=== PATIENT | female | born 1930 | race Caucasian/White ===

== ENCOUNTER 2016-07-01 07:35 | Emergency (ER) | payer MEDICAID ==
[~2016-07-01] VITALS: Ht 152.4 cm; Wt 49.0 kg
[~2016-07-01 07:35] MED LIST: NAPR-260 PO
[2016-07-01 07:36] VITALS: Ht 152.4 cm; Wt 49.0 kg
--- NOTE | 2016-07-01 08:15 | ERD ---
ER Documentation Chief Complaint Date/Time DATE: 07/01/16 TIME: 07:58 Chief Complaint 09/24 R. leg pain x 5 days after fall HPI This is a very pleasant 85-year-old [place]an speaking female presents to the emergency department, brought in by her daughter, complaining of right leg pain for the past 6 days. The patient had a mechanical trip and fall over an object on a tile surface inside her home. The patient did not hit her head or lose consciousness. The patient had landed on her right hip and right elbow. She indicates she normally ambulates with a cane. She did not initially want to come to the hospital for evaluation however her daughter became concerned when she noticed bruising over her right hip. The patient indicates she is experiencing mild pain of her right hip and elbow that is exacerbated with ambulation and movement of the right arm. She denies any numbness or tingling of her upper or lower extremities. She is right-handed dominant. The patient has no past medical history and takes 81 mg of aspirin on a daily basis. She did not take any analgesic medication prior to arrival ROS All systems reviewed and are negative except as per history of present illness. Medications Home Meds Active Scripts Naproxen* (Naprosyn*) 500 Mg Tablet, 500 MG PO BID Y for PAIN AND/OR INFLAMMATION, #30 TAB Prov:LEDATRACEY CERVANTES 08/23/15 Allergies Allergies: Coded Allergies: No Known Allergy (Unverified , 08/22/15) PMhx/Soc History of Surgery: Yes (hysterectomy ) Anesthesia Reaction: No Hx Neurological Disorder: No Hx Respiratory Disorders: No Hx Cardiac Disorders: Yes (htn) Hx Psychiatric Problems: No Hx Miscellaneous Medical Probl: Yes (anemia) Hx Alcohol Use: No Hx Substance Use: No Hx Tobacco Use: No Physical Exam Vitals Vital Signs Date Time Temp Pulse Resp B/P Pulse Ox O2 Delivery O2 Flow Rate FiO2 07/01/16 07:36 98.4 70 18 167/74 99 Physical Exam Constitutional:Well-developed. Well-nourished. HEENT:Normocephalic. Atraumatic.Pupils were equal round reactive to light. Moist mucous membranes.No tonsillar exudates. Neck: No nuchal rigidity. No lymphadenopathy. No posterior cervical spine tenderness or step-offs. Respiratory: Not using accessory muscles of respiration.Lungs were clear to auscultation bilaterally. No rhonchi. No rales. No wheezing. Cardiovascular: Regular rate regular rhythm.No murmurs. No rubs were appreciated.S1, S2 normal. Distal pulses are palpable 2+ bilaterally. No crepitus no ecchymosis no flail chest GI: Abdomen was soft. Nontender. Non Distended. No pulsatile abdominal masses or bruits. No rebound. No guarding. Bowel sounds were present and normal. Muscle skeletal: Full range of motion of both the upper and lower extremities bilaterally.Normal muscle tone.No assymetrical calf tenderness or swelling. Well-circumscribed area of ecchymosis over the right proximal femur with mild tenderness over the right anterior superior iliac spine. Lower extremities were of equal length and symmetrical with no internal or external rotation. Superficial abrasion over the right olecranon process. Flexion extension of the right forearm did not exacerbate pain. Patient was able to AB duct the right upper extremity past 90. Skin: No petechia, no purpura. No lesions on the palms or the soles of the feet. No maculopapular rash. NEURO: Patient was alert, awake, orientated x3.No facial droop. Gait observed and normal with no ataxia.Speech had regular rate and rhythm. No focal neurological deficits. Procedures/MDM This is a very pleasant 85-year-old female that presented to the emergency department after she had a mechanical ground-level fall. Radiographic imaging of the right hip and right elbow indicated there was no acute fractures or dislocations. The patient was given a tetanus toxoid update due to the abrasion over her right elbow. There is no physical exam findings to suggest overlying cellulitis, abscess or necrotizing fasciitis. The patient was refusing analgesic medication. The patient was discharged home in fair condition. They were instructed to return to the emergency department at any time if there was any worsening of their condition. The patient stated they would follow up with their PCP in the next 24-48 hours to initiate a suitable medication regimen under the care of their PCP as well as to allow their PCP to monitor any drug reactions. The patient was discharged home with prescriptions after they gave informed consent to the new medication. They were also fully informed by myself on the adverse effects and adverse drug interactions in order to provide adequate safeguards to prevent possible adverse reactions to medications. Departure Diagnosis: Primary Impression: Injury of right leg Encounter type: initial encounter Qualified Code: S89.91XA - Injury of right leg, initial encounter Additional Impression: Contusion Encounter type: initial encounter Contusion area: hip Laterality: right Qualified Code: S70.01XA - Contusion of right hip, initial encounter Condition: FADIA Mcneal Jul 01, 2016 08:08
[2016-07-01] MEDS ORDERED: DIPHTH/TET/ACEL PERTUSS (ADULT) 0.5 ML VIAL IM* ONE (08:30)
--- NOTE | 2016-07-01 09:19 | RADRPT ---
PROCEDURE: XR Right Hip CLINICAL INDICATION: Status post fall with proximal tenderness TECHNIQUE: AP and frog-leg views were submitted. COMPARISON: None FINDINGS: Osseous structures: The osseous elements are rarefied but intact with no fracture identified. Joint spaces: The hip joint is well maintained there is no distension of the joint capsule. Soft tissues: appear unremarkable. IMPRESSION: 1. Osteoporosis 2. No fracture is identified. Physician Alfred Date Time Electronically viewed and signed by Sharon Leung Physician on 07/01/2016 09:18 /
--- NOTE | 2016-07-01 09:20 | RADRPT ---
PROCEDURE: CR Right Elbow CLINICAL INDICATION: Fall with tenderness TECHNIQUE: AP, lateral, and an oblique radiographs were submitted. COMPARISON: None FINDINGS: Osseous Structures: The osseous elements are rarefied but intact with no fracture identified. There is minimal spurring off the posterior olecranon. Joint Spaces: The joint spaces are well maintained. No joint effusion is evident. Soft Tissues: Appear unremarkable. IMPRESSION: 1. Osteoporosis with no fracture or dislocation evident. 2. Minimal spurring off the posterior olecranon. Physician Alfred Date Time Electronically viewed and signed by Sharon Leung Physician on 07/01/2016 09:20 /
== END 2016-07-01 09:30 | disposition home or self-care (01) ==
LOC: E/R 07:35
DX: S89.91XA Unspecified injury of right lower leg, initial encounter (principal); S70.01XA Contusion of right hip, initial encounter; I10 Essential (primary) hypertension; W01.198A Fall on same level from slipping, tripping and stumbling with subsequent striking against other object, initial encounter; Y92.009 Unspecified place in unspecified non-institutional (private) residence as the place of occurrence of the external cause; Z23 Encounter for immunization
CPT/HCPCS: 73510; 90471

== ENCOUNTER 2017-10-30 17:26 | Inpatient (IN) | END 2017-11-04 16:55 | disposition home or self-care (01) | DRG 374 ==